=== PATIENT | female | born 1985 | race Caucasian/White ===

== ENCOUNTER 2017-01-26 23:09 | Observation (INO) | payer OTHER ==
[~2017-01-26] VITALS: Ht 160 cm; Wt 65.2 kg
--- NOTE | ~2017-01-26 | O ---
[facility] [place] [address] OPERATIVE REPORT Name: KATARINA ENNIS Room #: 449-I [facility] Iban Velasquez#: [id number] Admission: 01/27/17 Attend Phys: Rangel Romero MD, F Discharge: 01/30/17 Date of : 87 Report #: [id number] THIS REPORT FOR: //name// CC: [facility] physician/PCP Rangel Romero DATE OF SERVICE: 01/27/2017 PREOPERATIVE DIAGNOSIS: Acute appendicitis. POSTOPERATIVE DIAGNOSIS: Acute appendicitis, nonperforated, retrocecal. PROCEDURE: Laparoscopic appendectomy. SURGEON: Rangel Romero M.D. INDICATIONS: This 32-year-old lady has approximately 24 hours of abdominal pain, which is well localized to the right lower quadrant. CT scan is consistent with early appendicitis. OPERATIVE PROCEDURE: The patient had a thorough discussion of the procedure, benefits and risks. She gave informed consent to proceed. She was on IV antibiotics. She was brought to the operating room suite and had satisfactory induction of general endotracheal anesthesia. The patient's entire abdomen was prepped and draped in the usual sterile procedure with DuraPrep solution. Initially, open cutdown procedure was performed to the infraumbilical position. The fingertip introduction was performed. The 12 mm Michael trocar was then placed under direct vision. The balloon was inflated. Pneumoperitoneum was established. A left lower quadrant 5 mm trocar port was placed under direct vision. A lower midline 5 mm trocar port was placed under direct vision. The omentum was tightly adherent to the region of the inferior aspect of the cecum. This was removed without difficulty. The patient was placed into Trendelenburg position. The appendix was in a retrocecal position tightly adherent to the appendiceal groove of the cecum. A window was made in the mesoappendix just adjacent to the cecum. The appendix was then crossclamped, ligated and divided with a TAMI laparo-endoscopic device. The appendix was grasped and retracted slowly away from the cecum. Blunt and sharp dissection was utilized. The Sonicision was also utilized to control the appendiceal vessels. After the appendix was transected, there was oozing from the bed of the cecum and the appendiceal groove. The appendix was placed into an Endobag and removed from peritoneal cavity. The 0 PDS suture was placed under direct vision in a [id number] manner. The 12 mm trocar port was placed back into the abdominal cavity. Copious irrigation with saline was performed. There was still ongoing slow bleeding from base of the cecum. Clips were utilized to control the bleeding point which then was controlled. Additional irrigation was performed. Evacuation of all irrigating contents was accomplished. The [address] [address] OPERATIVE REPORT Name: KATARINA ENNIS Room #: 449-I [facility].Adam#: [id number] Admission: 01/27/17 Attend Phys: Rangel Romero MD, F Discharge: 01/30/17 Date of : 87 Report #: [id number] inferior aspect of the base of the cecum was then coated with Scarlet solution. No other intra-abdominal pathology was noted. After this was completed, the pneumoperitoneum was deflated. The 0 PDS suture was ligated in place. Skin margins were approximated with subcuticular 4-0 Monocryl. The remainder of the 0.5% plain Naropin was injected at all trocar sites. The estimated blood loss for the entire procedure was approximately 100 mL. The patient tolerated the procedure well, and she returned to the recovery room in stable and satisfactory condition. <ELECTRONICALLY SIGNED> By: Rangel Romero MD, FACS 02/04/17 [id number] Rangel Romero MD, FACS /nt
--- NOTE | ~2017-01-26 | H ---
[facility] [place] [address] HISTORY AND PHYSICAL Name: KATARINA ENNIS Room #: 449-I [facility]..#: [id number] Admission: 01/27/17 Attend Phys: Rangel Romero MD, F Discharge: Date of : 87 Report #: [id number] THIS REPORT FOR: //name// CC: [place] physician/PCP Rangel Romero DATE OF SERVICE: 01/27/2017 HISTORY OF PRESENT ILLNESS: This 32-year-old young lady has presented to the Emergency Department with chief complaint of right lower quadrant abdominal pain for approximately 48 hours. HISTORY OF PRESENT ILLNESS: The onset of her pain was Friday p.m., approximately 10:00 p.m., it continued to be progressive on Friday with anorexia and nausea. The pain became more unbearable on Friday and she sought attention in the Emergency Department. A CT scan was consistent with appendicitis. She has had no previous gastrointestinal problems or issues. PAST MEDICAL HISTORY: Medical illnesses, fibromyalgia, x 6 years. PAST SURGICAL HISTORY: None. MEDICATIONS: Wellbutrin, recent initiation, Cymbalta 60 mg daily, hydrocodone on a p.r.n. basis for generalized pain. ALLERGIES: No known drug allergies. FAMILY HISTORY: Unremarkable. SOCIAL HISTORY: Unremarkable. REVIEW OF SYSTEMS: A 10-point review of systems essentially noncontributory except for recent 48-hour change in gastrointestinal function. PHYSICAL EXAMINATION: GENERAL: Well-developed, well-nourished young lady, who is alert, cooperative, oriented x 3. She is afebrile. VITAL SIGNS: Within normal limits. NECK: Supple, full range of motion. LUNGS: Clear at the bases bilaterally. CARDIOVASCULAR: Regular rate and rhythm. ABDOMEN: Nondistended, positive Rovsing's, tenderness with guarding and rebound in right lower quadrant. RECTAL: Not performed. NEUROLOGIC: Oriented x 3, bilateral motor symmetry. [facility] [address] [place] [address] HISTORY AND PHYSICAL Name: KATARINA ENNIS Dm Room #: [address] [place] [address].#: [id number] Admission: 01/27/17 Attend Phys: Rangel Romero MD, F Discharge: Date of : 87 Report #: [id number] Review of CAT scan is consistent with appendicitis. ADMITTING DIAGNOSIS: Acute appendicitis. PLAN: Laparoscopic appendectomy now. IV antibiotics are administered. Please see admitting history and physical on the patient. <ELECTRONICALLY SIGNED> By: Rangel Romero MD, FACS 01/27/17 1102 [id number] Rangel Romero MD, FACS /nt
--- NOTE | ~2017-01-26 | S ---
[facility] [place] [address] SURGICAL PATH RPT PROCEDURE Name: CAROLYN THOMASON [id number]: 01/27/17 Date of : 87 Discharge: Report #: [id number] Path Case #: [id number] PATHOLOGY REPORT COLLECTION DATE: 01/27/2017 RECEIVED DATE: 01/27/2017 SUBMITTING PHYS: Dr. Rangel Romero OTHER PHYS: SPECIMEN(S) RECEIVED: A.Appendix * * * * * * * * * * * * FINAL DIAGNOSIS: Appendix, appendectomy: - Marked acute appendicitis along with marked serositis. - Fibrous obliteration of the tip. (IUV:mgr; d/t: 01/28/17) PATHOLOGIST: Ebony Rodriguez M.D. REPORT ELECTRONICALLY SIGNED BY: Ebony Rodriguez M.D. DATE/TIME: 01/28/2017 16:56 * * * * * * * * * * * * GROSS PATHOLOGY: Received in formalin labeled "Carolyn Thomason, appendix," is an appendix measuring 7.2 cm in length and 1.1 cm in diameter with a minimal amount of attached mesoappendix. The serosal surface is pink-holt and shaggy. There is a perforation located 3.1 cm from the proximal margin. The serosal surface surrounding the perforation is inked blue. Sectioning reveals a patent to dilated lumen filled with fecal material and blood coagulum. Glaze Handler sections are submitted as follows: A1 proximal margin, bisected tip and perforation A2 additional claims customer service representative cross-sections of appendix. (KAH; 01/27/2017) CLINICAL HISTORY: Acute appendicitis INITIAL CPT CODE(S): A; 85933 [facility] by [facility] at [address], [place] [address] [facility] [address] [place] [address] SURGICAL PATH RPT PROCEDURE Name: CAROLYN THOMASON Room #: 449-I [facility]..#: [id number] Admission: 01/27/17 Date of : 87 Discharge: Report #: [id number] Path Case #: [id number] Technical services performed by [facility] at [address] [place] [address], [facility] [address] [place] [address]. [facility] [address] [place] [address] PHONE: [phone] DIRECTOR: Octaviano Cage M.D. * * * END OF REPORT * * *
[~2017-01-26 23:09] MED LIST: CYMBALTA60 MG PO; NORCO 5-325 TA1 EACH PO; ZYRTEC10 MG PO
[2017-01-26 23:15] VITALS: BP 129/49
[2017-01-27] VITALS (7 sets, daily range): BP systolic 112–138; BP diastolic 48–76
[2017-01-27 00:26] LABS: URINE BILIRUBIN NEGATIVE (Negative); URINE BLOOD TRACE (Negative); URINE COLOR YELLOW; URINE GLUCOSE-RANDOM* NEGATIVE (Negative); URINE KETONES TRACE (Negative); URINE NITRITE NEGATIVE (Negative); URINE PROTEIN (DIPSTICK) NEGATIVE (Negative); URINE SPECIFIC GRAVITY <= 1.005 (1.003-1.035); URINE UROBILINOGEN 0.2 E.U./dl (0.2-1.0)
[2017-01-27 01:24] LABS: HEMATOCRIT 38.2 % (37.0-47.0); HEMOGLOBIN 13.5 gm/dL (12.0-15.0); MCH 32.1 pg (26.0-34.0); MCHC 35.2 g/dL (28.0-37.0); MCV 91.2 fL (80.0-100.0); PLATELET COUNT 209 thou/uL (150-400); RDW 13.1 % (10.5-14.5); WBC 10.9 thou/uL (4.0-11.0)
[2017-01-27 01:25] LABS: MANUAL DIFF YES
[2017-01-27 01:31] LABS: CALCIUM 9.5 mg/dL (8.5-10.1); CREATININE 0.7 mg/dL (0.6-1.0); POTASSIUM 3.8 mmol/L (3.5-5.1)
[2017-01-27 01:36] LABS: ALBUMIN 3.4 g/dL (3.4-5.0); TOTAL BILIRUBIN 1.1 mg/dL (<0.1-1.0); TOTAL PROTEIN 7.1 g/dL (6.4-8.2)
[2017-01-27 01:59] LABS: ABSOLUTE NEUTROPHILS 10.5 thou/uL (1.4-8.2); ANISOCYTOSIS SLIGHT; TOTAL CELL COUNT 100
[2017-01-27] MEDS ORDERED: NORCO 10-325 T1 EACH PO (08:15)
[2017-01-27] MEDS ORDERED: WELLBUTRIN XL300 MG PO (08:16)
[2017-01-27] MEDS ORDERED: CYMBALTA60 MG PO (08:16)
[2017-01-28] VITALS: BP 93/46
[2017-01-28 04:00] VITALS: BP 112/65
[2017-01-28 05:36] LABS: HEMATOCRIT 28.8 % (37.0-47.0); MCH 31.6 pg (26.0-34.0); MCHC 34.3 g/dL (28.0-37.0); MCV 92.1 fL (80.0-100.0); RBC 3.12 mil/uL (4.20-5.00); RDW 13.2 % (10.5-14.5); WBC 5.5 thou/uL (4.0-11.0)
[2017-01-28 05:39] LABS: HEMOGLOBIN 9.9 gm/dL (12.0-15.0)
[2017-01-28 07:31] VITALS: BP 110/56
[2017-01-28 12:27] VITALS: BP 121/72
[2017-01-28 15:04] VITALS: BP 124/84
[2017-01-28 18:58] LABS: HEMATOCRIT 31.3 % (37.0-47.0); HEMOGLOBIN 10.7 gm/dL (12.0-15.0); MCH 31.9 pg (26.0-34.0); MCHC 34.2 g/dL (28.0-37.0); MCV 93.1 fL (80.0-100.0); RBC 3.36 mil/uL (4.20-5.00); RDW 13.4 % (10.5-14.5); WBC 6.6 thou/uL (4.0-11.0)
[2017-01-28 19:15] VITALS: BP 128/71
[2017-01-29 00:30] VITALS: BP 128/79
[2017-01-29 04:23] VITALS: BP 113/55
[2017-01-29 06:59] LABS: ABSOLUTE NEUTROPHILS 5.6 thou/uL (1.4-8.2); BASOPHILS 0.4 % (0.0-2.0); EOSINOPHILS 1.4 % (0.0-3.0); HEMATOCRIT 27.9 % (37.0-47.0); HEMOGLOBIN 9.7 gm/dL (12.0-15.0); LYMPHOCYTES 12.4 % (24.0-44.0); MCH 31.9 pg (26.0-34.0); MCHC 34.8 g/dL (28.0-37.0); MCV 91.8 fL (80.0-100.0); MONOCYTES 8.1 % (1.0-8.0); PLATELET COUNT 178 thou/uL (150-400); POLYS 77.7 % (36.0-66.0); RBC 3.04 mil/uL (4.20-5.00); RDW 13.1 % (10.5-14.5); WBC 7.2 thou/uL (4.0-11.0)
[2017-01-29 07:04] LABS: MANUAL DIFF NO
[2017-01-29 07:10] VITALS: BP 117/70
[2017-01-29 11:35] VITALS: BP 123/69
[2017-01-29 15:27] VITALS: BP 115/48
[2017-01-29 16:15] LABS: HEMATOCRIT 30.3 % (37.0-47.0); HEMOGLOBIN 10.4 gm/dL (12.0-15.0); MCH 31.6 pg (26.0-34.0); MCHC 34.4 g/dL (28.0-37.0); MCV 91.8 fL (80.0-100.0); RBC 3.3 mil/uL (4.20-5.00); RDW 13.1 % (10.5-14.5); WBC 5.6 thou/uL (4.0-11.0)
[2017-01-29 20:00] VITALS: BP 116/58
[2017-01-30 03:13] VITALS: BP 118/59
[2017-01-30 05:50] LABS: HEMATOCRIT 28.6 % (37.0-47.0); HEMOGLOBIN 9.8 gm/dL (12.0-15.0); MCH 31.2 pg (26.0-34.0); MCHC 34.3 g/dL (28.0-37.0); RBC 3.14 mil/uL (4.20-5.00); RDW 13.6 % (10.5-14.5); WBC 6.2 thou/uL (4.0-11.0)
[2017-01-30 08:06] VITALS: BP 109/45
[2017-01-30 10:59] VITALS: BP 110/52
[2017-01-30 16:38] VITALS: BP 105/61
[2017-01-30] MEDS ORDERED: NORCO 10-325 T1 EACH PO (17:06)
[2017-01-30 17:16] VITALS: BP 105/61
[2017-01-30 18:13] VITALS: BP 105/61
== END 2017-01-30 17:43 | disposition home or self-care (01) ==
LOC: ER 23:09 → EROBS 01-27 03:08 → 4W 01-27 03:32
PROVIDERS: Emergency Medicine; Physician Assistant; Surgery
DX: K35.80 Unspecified acute appendicitis (principal); R06.00 Dyspnea, unspecified; N81.6 Rectocele
CPT/HCPCS: 50010; 50101; 50249; 50411; 50555; 50623; 50739; 50740; 50900; 50944; 50962; 51489; 51975; 52265; 52287; 53307; 54022; 54118; 55245; 56525; 56526; 62110; 62900; 70005